=== PATIENT | male | born 1955 | race Caucasian/White ===

== ENCOUNTER 2016-10-05 06:10 | Inpatient (IN) | payer OTHER ==
[~2016-10-05] VITALS: Ht 185.4 cm; Wt 72.7 kg
[~2016-10-05 06:10] MED LIST: ALLO100T30 PO; AMLO5TAB2 PO; ASPI-515 PO; ATOR40TA78 PO; HYDR2TAB29 PO; LISI-170 PO; METO50TA82 PO; MYCO250C PO; MYCO250C4 PO; ONDA4TAB10 PO; OXYC-302 PO; TAMS-11 PO
[2016-10-05] MEDS ORDERED: SODIUM CHLORIDE 0.9% 1,000 ML IV ONE ×2 (06:24→08:36)
[2016-10-05] MEDS ORDERED: SODIUM CHLORIDE 0.9% 1,000ML IVBOLUS ONE (06:30)
[2016-10-05] MEDS ORDERED: ONDANSETRON 2MG/ML, 2ML IVPush ONE (06:30)
[2016-10-05] MEDS ORDERED: SODIUM CHLORIDE FLUSH 10ML SYR IVF ONE (06:30)
[2016-10-05] MEDS ORDERED: LORazepam 2 MG/ML, 1ML IVPush ONE (06:30)
[2016-10-05] MEDS ORDERED: HYDROmorphone 1 MG/ML, 1ML IVPush PRN (06:30)
[2016-10-05] MEDS ORDERED: ONDANSETRON 2MG/ML, 2ML ONE (06:36)
[2016-10-05] MEDS ORDERED: HYDROmorphone 1 MG/ML, 1ML ONE (06:36)
[2016-10-05] MEDS ORDERED: LORazepam 2 MG/ML, 1ML ONE (06:38)
[2016-10-05] MEDS ORDERED: METO-99 PO (06:50)
[2016-10-05] MEDS ORDERED: ASPI-496 PO (06:50)
[2016-10-05] MEDS ORDERED: LISI-167 PO (06:50)
[2016-10-05 07:01] LABS: ASPARTATE AMINO TRANSFERASE 16 U/L (15-37); BLOOD UREA NITROGEN 29 mg/dL (7-18)
[2016-10-05] MEDS ORDERED: SODIUM CHLORIDE FLUSH 10ML SYR IVF PRN (09:00)
[2016-10-05] MEDS ORDERED: ONDANSETRON 2MG/ML, 2ML IVPush PRN (09:30)
[2016-10-05] MEDS ORDERED: POLYETHYLENE GLYCOL 17 GM PACKET PO PRN (09:30)
[2016-10-05] MEDS ORDERED: OXYcodone IR 5MG TABLET PO PRN (09:30)
[2016-10-05] MEDS ORDERED: BISACODYL 10 MG SUPP PR PRN (09:30)
[2016-10-05] MEDS ORDERED: TEMAZEPAM 15 MG CAPSULE PO PRN (09:30)
[2016-10-05] MEDS ORDERED: ACETAMINOPHEN 325 MG TABLET PO PRN (09:30)
[2016-10-05] MEDS ORDERED: DOCUSATE 100 MG CAPSULE PO PRN (09:30)
[2016-10-05 10:25] VITALS: BP 139/88
[2016-10-05] MEDS: NICOTINE 21 MG/24 HR PATCH.TD24 TD SCH (11:05)
[2016-10-05] MEDS: SODIUM CHLORIDE 0.9% 1,000 ML IV SCH ×2 (11:06→23:29)
[2016-10-05] MEDS: HYDROmorphone 2 MG/ML, 1ML IVPush PRN ×5 (11:06→23:28)
[2016-10-05] MEDS: ALLOPURINOL 100 MG TABLET PO SCH (11:46)
[2016-10-05] MEDS: AMLODIPINE 5 MG TABLET PO SCH ×2 (11:46→20:07)
[2016-10-05] MEDS: HEPARIN 5,000 UNITS/ML, 1ML SQ SCH ×2 (11:47→20:09)
[2016-10-05 12:30] LABS: PATH.CAST-FLAG NOT PRESENT; SPERM-FLAG NOT PRESENT; SRC-FLAG NOT PRESENT; XTAL-FLAG NOT PRESENT; YLC-FLAG NOT PRESENT
[2016-10-05 17:11] VITALS: BP 125/82
[2016-10-05 20:03] VITALS: BP 142/81
[2016-10-06] MEDS: HEPARIN 5,000 UNITS/ML, 1ML SQ SCH ×2 (03:46→12:28)
[2016-10-06] MEDS: HYDROmorphone 2 MG/ML, 1ML IVPush PRN ×2 (03:47→07:59)
[2016-10-06 03:53] VITALS: BP 161/90
[2016-10-06 05:32] LABS: BLOOD UREA NITROGEN 20 mg/dL (7-18)
[2016-10-06 08:02] VITALS: BP 151/90
[2016-10-06] MEDS: ALLOPURINOL 100 MG TABLET PO SCH (08:38)
[2016-10-06] MEDS: AMLODIPINE 5 MG TABLET PO SCH (08:38)
[2016-10-06] MEDS: NICOTINE 21 MG/24 HR PATCH.TD24 TD SCH (08:39)
[2016-10-06] MEDS ORDERED: ATORVASTATIN 40 MG TABLET PO SCH (09:00)
[2016-10-06] MEDS ORDERED: LISINOPRIL 10 MG TABLET PO SCH (09:00)
[2016-10-06] MEDS ORDERED: METOPROLOL TARTRATE 50 MG TABLET PO SCH (09:00)
[2016-10-06] MEDS ORDERED: ASPIRIN 81 MG TABLET EC PO SCH (09:00)
[2016-10-06] MEDS: SODIUM CHLORIDE 0.9% 1,000 ML IV SCH (12:28)
[2016-10-06 12:58] VITALS: BP 123/57
== END 2016-10-06 14:24 | disposition home or self-care (01) | DRG 392 ==
LOC: ED 06:30 → EDIP 08:36 → 4NOR 10:23 → DCLOUNGE 10-06 13:19
DX: A08.4 Viral intestinal infection, unspecified (principal); F10.239 Alcohol dependence with withdrawal, unspecified; J98.11 Atelectasis; D53.9 Nutritional anemia, unspecified; N18.3 Chronic kidney disease, stage 3 (moderate); E78.00 Pure hypercholesterolemia, unspecified; E78.5 Hyperlipidemia, unspecified; I12.9 Hypertensive chronic kidney disease with stage 1 through stage 4 chronic kidney disease, or unspecified chronic kidney disease; I71.4 Abdominal aortic aneurysm, without rupture; I73.9 Peripheral vascular disease, unspecified; K57.30 Diverticulosis of large intestine without perforation or abscess without bleeding; M51.37 Other intervertebral disc degeneration, lumbosacral region; N28.1 Cyst of kidney, acquired; N40.0 Benign prostatic hyperplasia without lower urinary tract symptoms; M10.9 Gout, unspecified; F12.90 Cannabis use, unspecified, uncomplicated; Z88.5 Allergy status to narcotic agent; Z95.828 Presence of other vascular implants and grafts; Z87.11 Personal history of peptic ulcer disease
CPT/HCPCS: 36415; 71010; 74000; 74176; 80048; 80053; 81001; 82140; 82607; 82746; 83605; 83690; 83735; 84100; 84443; 85025; 85610; 85730; 86677; 93005; 96361; 96374; 96375; J1170; J1644; J2405; J7517; J2060; J7030

== ENCOUNTER → 2016-12-23 | Outpatient (CLI) | payer OTHER ==
[~2016-12-23] MED LIST changes: +ASPI-496 PO; +LISI-167 PO; +METO-99 PO
== END | disposition home or self-care (01) ==
LOC: CFH 07:32
PROVIDERS: ATTEND Nurse Practitioner Family
DX: I71.4 Abdominal aortic aneurysm, without rupture (principal); I77.1 Stricture of artery; I70.0 Atherosclerosis of aorta
CPT/HCPCS: 93978

== ENCOUNTER → 2017-02-24 | Outpatient (CLI) | payer OTHER ==
[2017-02-24 09:36] LABS: HEMATOCRIT 42.6 % (39.2-51.8); HEMOGLOBIN 14.3 g/dL (13.7-18.0); WHITE BLOOD COUNT 10.5 x10^3/uL (3.4-10)
[2017-02-24 09:51] LABS: BLOOD UREA NITROGEN 37 mg/dL (7-18)
[2017-02-24 09:54] LABS: ASPARTATE AMINO TRANSFERASE 13 U/L (15-37)
== END | disposition home or self-care (01) ==
LOC: STAR 08:33
PROVIDERS: ATTEND Surgery
DX: Z01.818 Encounter for other preprocedural examination (principal); R94.31 Abnormal electrocardiogram [ECG] [EKG]; I71.4 Abdominal aortic aneurysm, without rupture; I70.1 Atherosclerosis of renal artery; I70.209 Unspecified atherosclerosis of native arteries of extremities, unspecified extremity; I12.9 Hypertensive chronic kidney disease with stage 1 through stage 4 chronic kidney disease, or unspecified chronic kidney disease; N18.9 Chronic kidney disease, unspecified; E78.00 Pure hypercholesterolemia, unspecified; Z72.0 Tobacco use
CPT/HCPCS: 36415; 80053; 85025; 93005

== ENCOUNTER 2017-02-28 08:38 | Inpatient (IN) | payer OTHER ==
[~2017-02-28] VITALS: Ht 185.4 cm; Wt 79.6 kg
[2017-02-28] MEDS ORDERED: CEFAZOLIN 1,000 MG ONE ×5 (11:26→17:53)
[2017-02-28] MEDS ORDERED: MIDAZOLAM 1 MG/ML, 2ML ONE ×2 (11:26→13:45)
[2017-02-28] MEDS ORDERED: EPINEPHRINE 1 MG/ML, 1ML ONE (11:26)
[2017-02-28] MEDS ORDERED: NEOSTIGMINE 1 MG/ML, 10ML ONE ×2 (11:26→16:16)
[2017-02-28] MEDS ORDERED: PROPOFOL 10 MG/ML, 20ML ONE ×2 (11:26→13:46)
[2017-02-28] MEDS ORDERED: ROCURONIUM 10 MG/ML,10ML ONE ×2 (11:26→13:47)
[2017-02-28] MEDS ORDERED: CALCIUM CHLORIDE 13.6 MEQ/10 ML ONE (11:26)
[2017-02-28] MEDS ORDERED: FENTANYL PF 250 MCG/5ML ONE (11:26)
[2017-02-28] MEDS ORDERED: GLYCOPYRROLATE 0.2MG/1ML, 5ML ONE ×2 (11:26→16:16)
[2017-02-28] MEDS ORDERED: PHENYLEPHRINE 10 MG/ML ONE (11:26)
[2017-02-28] MEDS ORDERED: ASPI-496 PO (12:31)
[2017-02-28] MEDS ORDERED: LACTATED RINGERS 1,000 ML IV SCH (13:00)
[2017-02-28] MEDS ORDERED: FENTANYL PF 100 MCG/2ML ONE ×5 (13:45→17:40)
[2017-02-28] MEDS ORDERED: SODIUM CHLORIDE 0.9% PF 10ML ONE ×2 (13:48→17:52)
[2017-02-28] MEDS ORDERED: THROMBIN 20,000 UNIT VIAL TP ONE ×2 (14:49→16:00)
[2017-02-28] MEDS ORDERED: PROTAMINE SULFATE 10 MG/ML, 5ML ONE (14:49)
[2017-02-28] MEDS ORDERED: HEPARIN 1,000 UNITS/ML, 10ML ONE (14:49)
[2017-02-28] MEDS ORDERED: HEPARIN 1,000 UNITS/ML, 30ML ONE ×2 (14:53→18:58)
[2017-02-28] MEDS ORDERED: ONDANSETRON 2MG/ML, 2ML IVPush PRN (15:00)
[2017-02-28] MEDS ORDERED: OXYcodone 5 MG/5 ML ORAL.SOL UDC PO PRN (15:00)
[2017-02-28] MEDS ORDERED: LABETALOL 5MG/ML, 20ML IV PRN (15:00)
[2017-02-28] MEDS ORDERED: MEPERIDINE/PF 25MG/0.5ML IVPush PRN (15:00)
[2017-02-28] MEDS ORDERED: FENTANYL PF 100 MCG/2ML IV PRN (15:00)
[2017-02-28] MEDS ORDERED: PROMETHAZINE 25 MG/ML, 1ML IV PRN (15:00)
[2017-02-28] MEDS ORDERED: hydrALAzine 20 MG/ML, 1ML IV PRN (15:00)
[2017-02-28] MEDS ORDERED: ACETAMINOPHEN 325 MG TABLET PO PRN (15:00)
[2017-02-28] MEDS ORDERED: EPHEDRINE 50 MG/ML, 1ML IVPush PRN (15:00)
[2017-02-28] MEDS ORDERED: HEPARIN 1,000 UNITS/ML, 30ML IVPB ONE (16:00)
[2017-02-28] MEDS ORDERED: HEPARIN 1,000 UNITS/ML, 10ML IV ONE (16:00)
[2017-02-28] MEDS ORDERED: CALCIUM CHLORIDE 10%, 10ML SYR ONE (19:05)
[2017-02-28] MEDS ORDERED: HYDROmorphone 2 MG/ML, 1ML ONE (20:15)
[2017-02-28] MEDS: HYDROmorphone 1 MG/ML, 1ML IV PRN ×4 (20:15→23:26)
[2017-02-28 20:50] LABS: HEMATOCRIT 36.5 % (39.2-51.8); WHITE BLOOD COUNT 18.9 x10^3/uL (3.4-10)
[2017-02-28 21:01] LABS: BLOOD UREA NITROGEN 35 mg/dL (7-18)
[2017-02-28] MEDS ORDERED: SODIUM CHLORIDE 0.9% 500 ML IV ONE (22:00)
[2017-02-28] MEDS ORDERED: LABETALOL 5MG/ML, 20ML IVPush PRN (22:30)
[2017-02-28] MEDS ORDERED: ONDANSETRON 2MG/ML, 2ML IV PRN (22:30)
[2017-02-28] MEDS: D5%-LACTATED RINGERS 1,000 ML IV SCH (22:34)
[2017-02-28 23:13] LABS: ABG COLLECTION SITE ARTERIAL LINE
[2017-03-01] MEDS ORDERED: SODIUM BICARBONATE IV ONE
[2017-03-01] MEDS ORDERED: DEXTROSE 5% IV ONE
[2017-03-01] MEDS: SODIUM BICARBONATE 8.4% 100 MEQ in DEXTROSE 5% 1,000 ML IV SCH ×2 (00:07→11:10)
[2017-03-01] MEDS ORDERED: ENOXAPARIN 40 MG/0.4 ML SQ SCH (00:30)
[2017-03-01 01:28] LABS: BLOOD UREA NITROGEN 37 mg/dL (7-18)
[2017-03-01] MEDS: CEFAZOLIN PMX 1GM/50ML 50 ML IVPB SCH ×2 (02:15→09:39)
[2017-03-01] MEDS: HYDROmorphone 1 MG/ML, 1ML IV PRN ×4 (02:21→09:38)
[2017-03-01 04:00] VITALS: BP 99/52
[2017-03-01 04:28] LABS: ABG COLLECTION SITE ARTERIAL LINE
[2017-03-01 04:33] LABS: HEMATOCRIT 32.7 % (39.2-51.8); HEMOGLOBIN 10.9 g/dL (13.7-18.0); WHITE BLOOD COUNT 9.3 x10^3/uL (3.4-10)
[2017-03-01 04:36] LABS: BLOOD UREA NITROGEN 37 mg/dL (7-18)
[2017-03-01] MEDS ORDERED: SODIUM CHLORIDE 0.9% 1,000ML IVBOLUS ONE (07:30)
[2017-03-01] MEDS: AMLODIPINE 5 MG TABLET PO SCH ×2 (07:43→20:31)
[2017-03-01] MEDS: METOPROLOL TARTRATE 50 MG TABLET PO SCH (07:43)
[2017-03-01] MEDS: ALLOPURINOL 100 MG TABLET PO SCH (07:43)
[2017-03-01] MEDS: ATORVASTATIN 40 MG TABLET PO SCH (07:43)
[2017-03-01] MEDS ORDERED: LISINOPRIL 10 MG TABLET PO SCH (09:00)
[2017-03-01] MEDS: D5%-LACTATED RINGERS 1,000 ML IV SCH (09:31)
[2017-03-01] MEDS: SODIUM CHLORIDE FLUSH 10ML SYR IVF SCH ×2 (09:39→21:16)
[2017-03-01 10:59] LABS: POTASSIUM,URINE RANDOM 54 mmol/L
[2017-03-01] MEDS: FENTANYL PF 100 MCG/2ML IVPush PRN ×11 (12:33→23:37)
[2017-03-01 12:54] LABS: ABG COLLECTION SITE ARTERIAL LINE
[2017-03-01 18:28] LABS: PTH INTACT INTERPRETATION ** Comment **
[2017-03-01 19:05] LABS: PARATHYROID HORMONE INTACT 122.4 pg/mL (14-72)
[2017-03-01] MEDS ORDERED: FOLIC ACID 1 MG in DEXTROSE 5% 50 ML IV ONE (19:30)
[2017-03-01 20:20] LABS: FERRITIN 156.5 ng/mL (26-388)
[2017-03-01] MEDS: THIAMINE 100 MG in SODIUM CHLORIDE 0.9% 50 ML IV SCH (20:45)
[2017-03-02] MEDS ORDERED: HYDROcodone/APAP 10/325 MG TABLET ONE (00:58)
[2017-03-02] MEDS: HYDROcodone/APAP 10/325 MG TABLET PO SCH ×7 (01:00→23:03)
[2017-03-02] MEDS: FENTANYL PF 100 MCG/2ML IVPush PRN ×9 (01:00→20:55)
[2017-03-02] MEDS: SODIUM BICARBONATE 8.4% 100 MEQ in DEXTROSE 5% 1,000 ML IV SCH (01:01)
[2017-03-02] MEDS: ENOXAPARIN 30 MG/0.3 ML SQ SCH ×2 (01:01→20:55)
[2017-03-02 04:00] VITALS: BP 146/58
[2017-03-02 04:33] LABS: ABG COLLECTION SITE ARTERIAL LINE
[2017-03-02 04:37] LABS: HEMATOCRIT 31.7 % (39.2-51.8); HEMOGLOBIN 10.6 g/dL (13.7-18.0); WHITE BLOOD COUNT 11.8 x10^3/uL (3.4-10)
[2017-03-02 04:49] LABS: BLOOD UREA NITROGEN 40 mg/dL (7-18)
[2017-03-02 04:54] LABS: ASPARTATE AMINO TRANSFERASE 31 U/L (15-37)
[2017-03-02] MEDS: METOPROLOL TARTRATE 50 MG TABLET PO SCH (08:44)
[2017-03-02] MEDS: ATORVASTATIN 40 MG TABLET PO SCH (08:44)
[2017-03-02] MEDS: AMLODIPINE 5 MG TABLET PO SCH ×2 (08:45→20:54)
[2017-03-02] MEDS: ALLOPURINOL 100 MG TABLET PO SCH (08:45)
[2017-03-02] MEDS: SODIUM CHLORIDE FLUSH 10ML SYR IVF SCH ×2 (08:49→21:00)
[2017-03-02 17:22] VITALS: BP 151/87
[2017-03-02] MEDS: THIAMINE 100 MG in SODIUM CHLORIDE 0.9% 50 ML IV SCH (20:54)
[2017-03-02 21:00] VITALS: BP 143/73
[2017-03-03 01:45] VITALS: BP 127/81
[2017-03-03] MEDS: HYDROcodone/APAP 10/325 MG TABLET PO SCH ×6 (03:05→23:00)
[2017-03-03 05:59] LABS: BLOOD UREA NITROGEN 40 mg/dL (7-18)
[2017-03-03 06:16] LABS: HEMATOCRIT 30.2 % (39.2-51.8); HEMOGLOBIN 10.2 g/dL (13.7-18.0); WHITE BLOOD COUNT 8.6 x10^3/uL (3.4-10)
[2017-03-03 07:58] VITALS: BP 144/75
[2017-03-03] MEDS: SODIUM CHLORIDE FLUSH 10ML SYR IVF SCH ×2 (09:00→21:00)
[2017-03-03] MEDS: METOPROLOL TARTRATE 50 MG TABLET PO SCH (09:41)
[2017-03-03] MEDS: AMLODIPINE 5 MG TABLET PO SCH ×2 (09:41→22:28)
[2017-03-03] MEDS: ALLOPURINOL 100 MG TABLET PO SCH (09:41)
[2017-03-03] MEDS ORDERED: MAGNESIUM SULFATE PMX 4GM/100M 100 ML IV ONE (10:00)
[2017-03-03] MEDS: MAGNESIUM OXIDE 400 MG TABLET PO SCH ×2 (12:57→21:00)
[2017-03-03 15:53] VITALS: BP 131/75
[2017-03-03] MEDS: IRON SUCROSE COMPLEX 100MG/5ML IV SCH (18:10)
[2017-03-03] MEDS: FENTANYL PF 100 MCG/2ML IVPush PRN ×2 (18:20→22:39)
[2017-03-03 19:37] VITALS: BP 136/76
[2017-03-03] MEDS: ENOXAPARIN 40 MG/0.4 ML SQ SCH (22:28)
[2017-03-03] MEDS: ATORVASTATIN 40 MG TABLET PO SCH (22:28)
[2017-03-03] MEDS: THIAMINE 100 MG in SODIUM CHLORIDE 0.9% 50 ML IV SCH (22:28)
[2017-03-04 00:33] VITALS: BP 143/73
[2017-03-04] MEDS: FENTANYL PF 100 MCG/2ML IVPush PRN ×6 (02:06→22:27)
[2017-03-04] MEDS: HYDROcodone/APAP 10/325 MG TABLET PO SCH ×2 (03:00→07:00)
[2017-03-04 05:41] LABS: HEMATOCRIT 31.9 % (39.2-51.8); HEMOGLOBIN 10.6 g/dL (13.7-18.0); WHITE BLOOD COUNT 7.7 x10^3/uL (3.4-10)
[2017-03-04 05:47] LABS: BLOOD UREA NITROGEN 35 mg/dL (7-18)
[2017-03-04 07:18] VITALS: BP 140/83
[2017-03-04] MEDS: SODIUM CHLORIDE FLUSH 10ML SYR IVF SCH ×2 (09:00→20:04)
[2017-03-04] MEDS ORDERED: BISACODYL 10 MG SUPP PR PRN (09:00)
[2017-03-04] MEDS: METOPROLOL TARTRATE 50 MG TABLET PO SCH (10:56)
[2017-03-04] MEDS: CHOLECALCIFEROL 400 UNITS TABLET PO SCH (10:56)
[2017-03-04] MEDS: ALLOPURINOL 100 MG TABLET PO SCH (10:56)
[2017-03-04] MEDS: AMLODIPINE 5 MG TABLET PO SCH ×2 (10:56→20:05)
[2017-03-04] MEDS: PANTOPRAZOLE 40 MG IV IVPush SCH ×2 (10:57→20:05)
[2017-03-04 13:30] VITALS: BP 130/77
[2017-03-04] MEDS: IRON SUCROSE COMPLEX 100MG/5ML IV SCH (17:40)
[2017-03-04 19:26] VITALS: BP 137/78
[2017-03-04] MEDS: ATORVASTATIN 40 MG TABLET PO SCH (20:05)
[2017-03-04] MEDS: THIAMINE 100 MG in SODIUM CHLORIDE 0.9% 50 ML IV SCH (20:05)
[2017-03-04] MEDS: ENOXAPARIN 40 MG/0.4 ML SQ SCH (20:05)
[2017-03-05] MEDS: FENTANYL PF 100 MCG/2ML IVPush PRN ×6 (01:28→21:51)
[2017-03-05 01:53] VITALS: BP 134/76
[2017-03-05 05:21] LABS: BLOOD UREA NITROGEN 32 mg/dL (7-18)
[2017-03-05 05:24] LABS: HEMATOCRIT 28.7 % (39.2-51.8); HEMOGLOBIN 9.5 g/dL (13.7-18.0)
[2017-03-05 08:06] VITALS: BP 151/79
[2017-03-05] MEDS: SODIUM CHLORIDE FLUSH 10ML SYR IVF SCH ×2 (09:00→21:51)
[2017-03-05] MEDS ORDERED: ARANESP 60 MCG/ML **ESRD SQ SCH (09:00)
[2017-03-05] MEDS: HYDROcodone/APAP 10/325 MG TABLET PO PRN ×2 (12:44→23:26)
[2017-03-05] MEDS: CHOLECALCIFEROL 400 UNITS TABLET PO SCH (12:49)
[2017-03-05] MEDS: AMLODIPINE 5 MG TABLET PO SCH ×2 (12:49→21:51)
[2017-03-05] MEDS: ALLOPURINOL 100 MG TABLET PO SCH (12:49)
[2017-03-05] MEDS: PANTOPRAZOLE 40 MG IV IVPush SCH ×2 (12:49→21:57)
[2017-03-05] MEDS: METOPROLOL TARTRATE 50 MG TABLET PO SCH (12:50)
[2017-03-05 14:06] VITALS: BP 125/74
[2017-03-05] MEDS: IRON SUCROSE COMPLEX 100MG/5ML IV SCH (16:36)
[2017-03-05 18:45] VITALS: BP 167/87
[2017-03-05] MEDS: ATORVASTATIN 40 MG TABLET PO SCH (21:51)
[2017-03-05] MEDS: THIAMINE 100 MG in SODIUM CHLORIDE 0.9% 50 ML IV SCH (21:52)
[2017-03-05] MEDS: ENOXAPARIN 40 MG/0.4 ML SQ SCH (23:26)
[2017-03-06 02:09] VITALS: BP_SYST 145; BP_SYST 152; BP_DIAS 74; BP_DIAS 80
[2017-03-06] MEDS: FENTANYL PF 100 MCG/2ML IVPush PRN ×6 (04:58→21:09)
[2017-03-06 05:42] LABS: BLOOD UREA NITROGEN 28 mg/dL (7-18)
[2017-03-06 05:45] LABS: HEMATOCRIT 29.9 % (39.2-51.8); HEMOGLOBIN 10.2 g/dL (13.7-18.0); WHITE BLOOD COUNT 4.7 x10^3/uL (3.4-10)
[2017-03-06 08:00] VITALS: BP 154/82
[2017-03-06] MEDS: PANTOPRAZOLE 40 MG IV IVPush SCH ×2 (09:30→21:09)
[2017-03-06] MEDS ORDERED: POLYETHYLENE GLYCOL 17 GM PACKET PO ONE (09:30)
[2017-03-06] MEDS: SODIUM CHLORIDE FLUSH 10ML SYR IVF SCH ×2 (09:31→21:09)
[2017-03-06] MEDS: AMLODIPINE 5 MG TABLET PO SCH ×2 (09:33→21:08)
[2017-03-06] MEDS: METOPROLOL TARTRATE 50 MG TABLET PO SCH (09:34)
[2017-03-06] MEDS: ALLOPURINOL 100 MG TABLET PO SCH (09:34)
[2017-03-06] MEDS: CHOLECALCIFEROL 400 UNITS TABLET PO SCH (09:34)
[2017-03-06] MEDS: HEPARIN 5,000 UNITS/ML, 1ML SQ SCH (10:04)
[2017-03-06 14:00] VITALS: BP 129/86
[2017-03-06] MEDS: IRON SUCROSE COMPLEX 100MG/5ML IV SCH (18:18)
[2017-03-06 19:15] VITALS: BP 138/79
[2017-03-06] MEDS: ATORVASTATIN 40 MG TABLET PO SCH (21:08)
[2017-03-06] MEDS: THIAMINE 100 MG in SODIUM CHLORIDE 0.9% 50 ML IV SCH (21:09)
[2017-03-07] MEDS: HEPARIN 5,000 UNITS/ML, 1ML SQ SCH ×4 (00:33→21:10)
[2017-03-07] MEDS: HYDROcodone/APAP 10/325 MG TABLET PO PRN ×4 (00:34→22:36)
[2017-03-07 02:00] VITALS: BP 142/73
[2017-03-07] MEDS: FENTANYL PF 100 MCG/2ML IVPush PRN ×3 (04:40→21:10)
[2017-03-07 05:04] LABS: HEMOGLOBIN 9.3 g/dL (13.7-18.0); WHITE BLOOD COUNT 6.1 x10^3/uL (3.4-10)
[2017-03-07 05:13] LABS: BLOOD UREA NITROGEN 26 mg/dL (7-18)
[2017-03-07 07:41] VITALS: BP 157/82
[2017-03-07] MEDS: ALLOPURINOL 100 MG TABLET PO SCH (08:40)
[2017-03-07] MEDS: AMLODIPINE 5 MG TABLET PO SCH ×2 (08:41→21:10)
[2017-03-07] MEDS: METOPROLOL TARTRATE 50 MG TABLET PO SCH (08:42)
[2017-03-07] MEDS: CHOLECALCIFEROL 400 UNITS TABLET PO SCH (08:42)
[2017-03-07] MEDS: PANTOPRAZOLE 40 MG IV IVPush SCH ×2 (08:42→21:10)
[2017-03-07] MEDS: SODIUM CHLORIDE FLUSH 10ML SYR IVF SCH ×2 (08:42→21:11)
[2017-03-07] MEDS ORDERED: ERGOCALCIFEROL 50,000 UNIT CAPSULE PO SCH (12:00)
[2017-03-07 14:30] VITALS: BP 122/74
[2017-03-07] MEDS: IRON SUCROSE COMPLEX 100MG/5ML IV SCH (16:24)
[2017-03-07 18:50] VITALS: BP 117/66
[2017-03-07] MEDS: ATORVASTATIN 40 MG TABLET PO SCH (21:11)
[2017-03-07] MEDS: THIAMINE 100 MG in SODIUM CHLORIDE 0.9% 50 ML IV SCH (22:37)
[2017-03-08 02:00] VITALS: BP 150/83
[2017-03-08] MEDS: FENTANYL PF 100 MCG/2ML IVPush PRN ×2 (02:02→05:58)
[2017-03-08 05:49] LABS: BLOOD UREA NITROGEN 25 mg/dL (7-18)
[2017-03-08 05:52] LABS: ASPARTATE AMINO TRANSFERASE 43 U/L (15-37)
[2017-03-08 05:55] LABS: HEMATOCRIT 28.8 % (39.2-51.8); HEMOGLOBIN 9.6 g/dL (13.7-18.0); WHITE BLOOD COUNT 5.2 x10^3/uL (3.4-10)
[2017-03-08] MEDS: HEPARIN 5,000 UNITS/ML, 1ML SQ SCH (07:00)
[2017-03-08 07:05] VITALS: BP 154/79
[2017-03-08] MEDS ORDERED: MAGNESIUM OXIDE 400 MG TABLET PO ONE (07:30)
[2017-03-08] MEDS: METOPROLOL TARTRATE 50 MG TABLET PO SCH (08:28)
[2017-03-08] MEDS: AMLODIPINE 5 MG TABLET PO SCH (08:28)
[2017-03-08] MEDS: PANTOPRAZOLE 40 MG IV IVPush SCH (08:28)
[2017-03-08] MEDS: ALLOPURINOL 100 MG TABLET PO SCH (08:28)
[2017-03-08] MEDS: SODIUM CHLORIDE FLUSH 10ML SYR IVF SCH (08:29)
[2017-03-08] MEDS ORDERED: HYDR-3240 PO (09:29)
[2017-03-08] MEDS ORDERED: DOCU-131 PO (09:30)
[2017-03-08] MEDS ORDERED: ONDA4TAB7 PO (09:30)
== END 2017-03-08 09:42 | disposition home health service (06) | DRG 270 ==
LOC: ORIP 11:17 → CCU 21:35 → 5SO 03-02 16:45 → DCLOUNGE 03-08 09:27
PROVIDERS: ADMIT Surgery; ATTEND Surgery
PROC: 04CK0ZZ Extirpation of Matter from Right Femoral Artery, Open Approach (ICD-10-PCS; 2017-02-28)
PROC: 04U00JZ Supplement Abdominal Aorta with Synthetic Substitute, Open Approach (ICD-10-PCS; 2017-02-28)
PROC: 04100J8 Bypass Abdominal Aorta to Bilateral Common Iliac Arteries with Synthetic Substitute, Open Approach (ICD-10-PCS; principal; 2017-02-28 14:30)
PROC: 04CL0ZZ Extirpation of Matter from Left Femoral Artery, Open Approach (ICD-10-PCS; 2017-02-28 14:30)
PROC: 0T9B70Z Drainage of Bladder with Drainage Device, Via Natural or Artificial Opening (ICD-10-PCS; 2017-03-01)
DX: I71.4 Abdominal aortic aneurysm, without rupture (principal); E43 Unspecified severe protein-calorie malnutrition; E87.2 Acidosis; D69.6 Thrombocytopenia, unspecified; E87.8 Other disorders of electrolyte and fluid balance, not elsewhere classified; N17.9 Acute kidney failure, unspecified; N18.3 Chronic kidney disease, stage 3 (moderate); N25.81 Secondary hyperparathyroidism of renal origin; D63.1 Anemia in chronic kidney disease; D72.829 Elevated white blood cell count, unspecified; E55.9 Vitamin D deficiency, unspecified; F17.210 Nicotine dependence, cigarettes, uncomplicated; I12.9 Hypertensive chronic kidney disease with stage 1 through stage 4 chronic kidney disease, or unspecified chronic kidney disease; Z96.643 Presence of artificial hip joint, bilateral; E78.00 Pure hypercholesterolemia, unspecified; I10 Essential (primary) hypertension; I77.1 Stricture of artery; I70.293 Other atherosclerosis of native arteries of extremities, bilateral legs; I70.1 Atherosclerosis of renal artery; F12.10 Cannabis abuse, uncomplicated; Z90.49 Acquired absence of other specified parts of digestive tract; Z82.49 Family history of ischemic heart disease and other diseases of the circulatory system; Z80.9 Family history of malignant neoplasm, unspecified; Z80.49 Family history of malignant neoplasm of other genital organs; Z72.89 Other problems related to lifestyle; Z88.0 Allergy status to penicillin
CPT/HCPCS: 36415; 36600; 71010; 76770; 80048; 80053; 81001; 82306; 82310; 82330; 82436; 82550; 82570; 82728; 82803; 83540; 83550; 83605; 83735; 83970; 84100; 84133; 84156; 84300; 84550; 85025; 85045; 86850; 86900; 87081; 87086; 87205; C1768; J0171; J0690; J0882; J1170; J1644; J1650; J1756; J2250; J2405; J2704; J2710; J2720; J3010; J3411; J3490; J7070; J7517; C1765; C1781; C9113; J2370; J3475; J7030; J7040; J7120; J7121

== ENCOUNTER → 2017-12-27 | Outpatient (CLI) | payer OTHER ==
[~2017-12-27] MED LIST changes: -AMLO5TAB2 PO; +AMLO5TAB7 PO; +DOCU-131 PO; +HYDR-3240 PO; +ONDA4TAB7 PO
== END | disposition home or self-care (01) ==
LOC: CFH 08:03
PROVIDERS: ATTEND Surgery
DX: K55.1 Chronic vascular disorders of intestine (principal); I71.4 Abdominal aortic aneurysm, without rupture; I73.9 Peripheral vascular disease, unspecified
CPT/HCPCS: 93975

== ENCOUNTER 2017-12-30 15:10 | Emergency (ER) | payer OTHER ==
[~2017-12-30] VITALS: Ht 185.4 cm; Wt 70.0 kg
[2017-12-30] MEDS ORDERED: OXYcodone/APAP 10/325MG TABLET PO ONE (15:30)
[2017-12-30] MEDS ORDERED: OXYcodone/APAP 10/325MG TABLET ONE (15:38)
[2017-12-30 16:48] VITALS: BP 136/62
== END 2017-12-30 16:59 | disposition home or self-care (01) ==
LOC: ED 16:57
DX: S16.1XXA Strain of muscle, fascia and tendon at neck level, initial encounter (principal); S29.011A Strain of muscle and tendon of front wall of thorax, initial encounter; R91.1 Solitary pulmonary nodule; I10 Essential (primary) hypertension; E78.00 Pure hypercholesterolemia, unspecified; V49.49XA Driver injured in collision with other motor vehicles in traffic accident, initial encounter; Y93.89 Activity, other specified; Y92.89 Other specified places as the place of occurrence of the external cause; Y99.8 Other external cause status
CPT/HCPCS: 70450; 71250; 72125; 99284

== ENCOUNTER 2018-01-05 06:12 | Observation (INO) | payer OTHER ==
[2018-01-03 16:04] LABS: ALANINE AMINOTRANSFERASE 19 U/L (12-78); ALBUMIN 2.9 g/dL (3.4-5.0); ANION GAP 6 mmol/L (5-15); CALCIUM 8.3 mg/dL (8.5-10.1); CHLORIDE 117 mmol/L (98-107); CREATININE 2.16 mg/dL (0.7-1.3)
[2018-01-03 16:06] LABS: ALKALINE PHOSPHATASE 86 U/L (45-117); BILIRUBIN,TOTAL 0.4 mg/dL (0.2-1.0); TOTAL PROTEIN 6.6 g/dL (6.4-8.2)
[~2018-01-05] VITALS: Ht 185.4 cm; Wt 77.8 kg
[2018-01-05] MEDS ORDERED: LACTATED RINGERS 1,000 ML IV SCH (06:46)
[2018-01-05] MEDS ORDERED: OxyconTIN ER 20 MG TAB.ER PO ONE (07:00)
[2018-01-05] MEDS ORDERED: FAMOTIDINE 20 MG TABLET PO ONE (07:00)
[2018-01-05] MEDS ORDERED: ACETAMINOPHEN 500 MG TABLET PO ONE (07:00)
[2018-01-05] MEDS ORDERED: ONDANSETRON ODT 8 MG PO ONE (07:00)
[2018-01-05] MEDS ORDERED: GABAPENTIN 300 MG CAPSULE PO ONE (07:00)
[2018-01-05] MEDS ORDERED: BUPIVACAINE/PF-EPI 0.5% 1:200K ONE (07:01)
[2018-01-05] MEDS ORDERED: PROPOFOL 10 MG/ML, 20ML ONE (07:13)
[2018-01-05] MEDS ORDERED: MIDAZOLAM 1 MG/ML, 2ML ONE ×2 (07:13)
[2018-01-05] MEDS ORDERED: GLYCOPYRROLATE 0.2MG/1ML, 5ML ONE (07:13)
[2018-01-05] MEDS ORDERED: LIDOCAINE 2% 100MG/5ML SYRINGE ONE (07:13)
[2018-01-05] MEDS ORDERED: DEXAMETHASONE 4 MG/ML, 1ML ONE (07:13)
[2018-01-05] MEDS ORDERED: FENTANYL PF 250 MCG/5ML ONE (07:14)
[2018-01-05] MEDS ORDERED: ROCURONIUM 10MG/ML,5ML ONE (07:35)
[2018-01-05] MEDS ORDERED: LABETALOL 20 MG/4 ML ONE (07:35)
[2018-01-05] MEDS ORDERED: ONDANSETRON ODT 8 MG PO PRN (09:00)
[2018-01-05] MEDS ORDERED: EPHEDRINE 50 MG/ML, 1ML IM PRN (09:00)
[2018-01-05] MEDS ORDERED: MIDAZOLAM 1 MG/ML, 2ML IV PRN (09:00)
[2018-01-05] MEDS ORDERED: KETOROLAC 30 MG/1 ML IV PRN (09:00)
[2018-01-05] MEDS ORDERED: ALBUTEROL/IPRATROPIUM 2.5MG/0.5MG, 3 ML NPPB PRN (09:00)
[2018-01-05] MEDS ORDERED: DEXAMETHASONE 4 MG/ML, 1ML IV PRN (09:00)
[2018-01-05] MEDS ORDERED: FENTANYL PF 100 MCG/2ML IV PRN (09:00)
[2018-01-05] MEDS ORDERED: DIPHENHYDRAMINE 50 MG/ML, 1ML IVPush PRN (09:00)
[2018-01-05] MEDS ORDERED: HYDROmorphone 1 MG/ML, 1ML IV PRN (09:00)
[2018-01-05] MEDS ORDERED: LABETALOL 5MG/ML, 20ML IV PRN (09:00)
[2018-01-05] MEDS ORDERED: MEPERIDINE/PF 25MG/0.5ML IVPush PRN (09:00)
[2018-01-05] MEDS ORDERED: OXYcodone 5 MG/5 ML ORAL.SOL UDC PO PRN (09:00)
[2018-01-05] MEDS ORDERED: METOCLOPRAMIDE 5 MG/ML, 2ML IV PRN (09:00)
[2018-01-05] MEDS ORDERED: HYDROcodone/APAP 5/325 TABLET ONE (15:14)
[2018-01-05] MEDS: HYDROcodone/APAP 5/325 TABLET PO PRN (21:54)
[2018-01-06] MEDS: HYDROcodone/APAP 5/325 TABLET PO PRN ×3 (00:15→09:55)
[2018-01-06 00:22] VITALS: BP 128/70
[2018-01-06 04:34] VITALS: BP 126/71
[2018-01-06 08:12] VITALS: BP 124/76
[2018-01-06] MEDS ORDERED: HYDR-3240 PO (11:33)
[2018-01-06] MEDS ORDERED: DOCU-131 PO (11:33)
[2018-01-06] MEDS ORDERED: ONDA4TAB7 PO (11:33)
[2018-01-06 12:37] VITALS: BP 129/89
== END 2018-01-06 13:00 | disposition home or self-care (01) ==
LOC: OUT 06:12 → 4NOR 18:29 → INTOOBSV 22:34 → 4NOR 22:34 → OUT 22:34 → DCLOUNGE 01-06 13:00
PROVIDERS: ADMIT Surgery; ATTEND Surgery
DX: K43.2 Incisional hernia without obstruction or gangrene (principal); I12.9 Hypertensive chronic kidney disease with stage 1 through stage 4 chronic kidney disease, or unspecified chronic kidney disease; N18.9 Chronic kidney disease, unspecified; E78.5 Hyperlipidemia, unspecified; Z86.79 Personal history of other diseases of the circulatory system; Z87.891 Personal history of nicotine dependence
CPT/HCPCS: 36415; 49654; 80053; 93005; C1781; G0378; J1100; J2250; J2704; J3010; J3490; J7120; Q0162

== ENCOUNTER 2018-01-08 08:37 | Emergency (ER) | payer OTHER ==
[~2018-01-08] VITALS: Ht 185.4 cm; Wt 70.0 kg
[2018-01-08] MEDS ORDERED: LIDOCAINE 2%,20 ML JEL.PF.APP MM ONE ×2 (09:21→09:30)
[2018-01-08 10:12] LABS: BASOPHILS # (AUTO) 0.02 x10^3/uL (0-0.1); BASOPHILS % (AUTO) 0 % (0-1); EOSINOPHILS # (AUTO) 0.13 x10^3/uL (0-0.4); EOSINOPHILS % (AUTO) 2 % (1-7); LYMPHOCYTES # (AUTO) 1.54 x10^3/uL (1-3.4); LYMPHOCYTES % (AUTO) 18 % (22-44); MD NO; MEAN CORPUSCULAR HEMOGLOBIN 34.5 pg (27.5-34.5); MEAN CORPUSCULAR HGB CONC 33.6 g/dL (33.2-36.2); MEAN CORPUSCULAR VOLUME 102.6 fL (81-97); MEAN PLATELET VOLUME 9.7 fL (7.4-10.4); MONOCYTES # (AUTO) 0.87 x10^3/uL (0.2-0.8); MONOCYTES % (AUTO) 10 % (2-9); NEUTROPHILS # (AUTO) 6.24 x10^3/uL (1.8-6.8); NEUTROPHILS % (AUTO) 71 % (42-75); PLATELET COUNT 215 x10^3/uL (130-400); RED BLOOD COUNT 3.49 x10^6/uL (4.38-5.82); RED CELL DISTRIBUTION WIDTH 14.6 % (9.4-14.8)
[2018-01-08 10:23] LABS: ALBUMIN 2.7 g/dL (3.4-5.0); ANION GAP 6 mmol/L (5-15); CALCIUM 8.4 mg/dL (8.5-10.1); CHLORIDE 112 mmol/L (98-107); CREATININE 2.65 mg/dL (0.7-1.3)
[2018-01-08 11:37] LABS: MICROSCOPIC AUTO
[2018-01-08 11:45] LABS: CULTURE INDICATED? YES
[2018-01-08 13:31] VITALS: BP 119/70
== END 2018-01-08 13:34 | disposition home or self-care (01) ==
LOC: ED 09:32
DX: I12.9 Hypertensive chronic kidney disease with stage 1 through stage 4 chronic kidney disease, or unspecified chronic kidney disease (principal); N18.9 Chronic kidney disease, unspecified; R33.9 Retention of urine, unspecified; E78.00 Pure hypercholesterolemia, unspecified
CPT/HCPCS: 36415; 51702; 80048; 81001; 82040; 85025; 87086; 99284

== ENCOUNTER 2018-01-16 15:41 | Emergency (ER) | payer OTHER ==
[~2018-01-16] VITALS: Ht 185.4 cm; Wt 71.5 kg
[2018-01-16 16:25] LABS: BASOPHILS # (AUTO) 0.03 x10^3/uL (0-0.1); BASOPHILS % (AUTO) 0 % (0-1); EOSINOPHILS % (AUTO) 2 % (1-7); LYMPHOCYTES % (AUTO) 18 % (22-44); MD NO; MEAN CORPUSCULAR HEMOGLOBIN 34.4 pg (27.5-34.5); MEAN CORPUSCULAR HGB CONC 33.1 g/dL (33.2-36.2); MEAN CORPUSCULAR VOLUME 103.9 fL (81-97); MEAN PLATELET VOLUME 8.8 fL (7.4-10.4); MONOCYTES % (AUTO) 8 % (2-9); NEUTROPHILS # (AUTO) 7.29 x10^3/uL (1.8-6.8); NEUTROPHILS % (AUTO) 72 % (42-75); PLATELET COUNT 281 x10^3/uL (130-400); RED BLOOD COUNT 3.46 x10^6/uL (4.38-5.82); RED CELL DISTRIBUTION WIDTH 14.7 % (9.4-14.8)
[2018-01-16 16:37] LABS: ALANINE AMINOTRANSFERASE 16 U/L (12-78); ANION GAP 9 mmol/L (5-15); CALCIUM 8.4 mg/dL (8.5-10.1); CHLORIDE 113 mmol/L (98-107)
[2018-01-16 16:41] LABS: ALKALINE PHOSPHATASE 119 U/L (45-117); BILIRUBIN,TOTAL 0.3 mg/dL (0.2-1.0); CREATININE 2.62 mg/dL (0.7-1.3); TOTAL PROTEIN 6.7 g/dL (6.4-8.2)
[2018-01-16 18:11] LABS: CULTURE INDICATED? YES; MICROSCOPIC INDICATED
[2018-01-16 18:33] VITALS: BP 141/83
== END 2018-01-16 18:58 | disposition home or self-care (01) ==
LOC: ED 17:38
DX: R31.29 Other microscopic hematuria (principal); S23.41XA Sprain of ribs, initial encounter; X58.XXXA Exposure to other specified factors, initial encounter; Y93.89 Activity, other specified; Y99.8 Other external cause status; Y92.89 Other specified places as the place of occurrence of the external cause
CPT/HCPCS: 36415; 74021; 80053; 81001; 85025; 87086; 99285

== ENCOUNTER → 2018-02-22 | Outpatient (CLI) | payer OTHER ==
[~2018-02-22] MED LIST changes: +AMLO-150 PO; -AMLO5TAB7 PO
== END | disposition home or self-care (01) ==
LOC: CFH 08:30
PROVIDERS: ATTEND Nurse Practitioner Gerontology
DX: I71.9 Aortic aneurysm of unspecified site, without rupture (principal); R31.9 Hematuria, unspecified
CPT/HCPCS: 74176

== ENCOUNTER 2018-06-15 05:34 | Day surgery (SDC) | payer MEDICARE, OTHER ==
[2018-06-14 12:03] LABS: ALANINE AMINOTRANSFERASE 21 U/L (12-78); ALBUMIN 3.1 g/dL (3.4-5.0); ANION GAP 5 mmol/L (5-15); CALCIUM 8.3 mg/dL (8.5-10.1); CHLORIDE 115 mmol/L (98-107)
[2018-06-14 12:05] LABS: ALKALINE PHOSPHATASE 103 U/L (45-117); BILIRUBIN,TOTAL 0.3 mg/dL (0.2-1.0); CREATININE 2.62 mg/dL (0.7-1.3); TOTAL PROTEIN 6.3 g/dL (6.4-8.2)
[~2018-06-15] VITALS: Ht 185.4 cm; Wt 72.0 kg
[~2018-06-15 05:34] MED LIST changes: +LISI2.5T PO; +METO-95 PO
[2018-06-15 06:07] VITALS: BP 139/88
[2018-06-15] MEDS ORDERED: LACTATED RINGERS 1,000 ML IV SCH (06:07)
[2018-06-15] MEDS ORDERED: BUPIVACAINE/PF-EPI 0.5% 1:200K ONE (06:17)
[2018-06-15] MEDS ORDERED: FENTANYL PF 250 MCG/5ML ONE (06:22)
[2018-06-15] MEDS ORDERED: MIDAZOLAM 1 MG/ML, 2ML ONE (06:22)
[2018-06-15] MEDS ORDERED: ACETAMINOPHEN 500 MG TABLET ONE (06:39)
[2018-06-15] MEDS ORDERED: GABAPENTIN 300 MG CAPSULE ONE (06:39)
[2018-06-15] MEDS ORDERED: ACETAMINOPHEN 500 MG TABLET PO ONE ×2 (07:00→07:30)
[2018-06-15] MEDS ORDERED: GABAPENTIN 300 MG CAPSULE PO ONE ×2 (07:00→07:30)
[2018-06-15] MEDS ORDERED: SODIUM CHLORIDE 0.9% 1,000 ML IV SCH (07:08)
[2018-06-15] MEDS ORDERED: BUPIVACAINE/PF-EPI 0.5% 1:200K INFIL ONE (07:25)
[2018-06-15] MEDS ORDERED: PROMETHAZINE 25 MG/ML, 1ML IV PRN (08:00)
[2018-06-15] MEDS ORDERED: OXYcodone 5 MG/5 ML ORAL.SOL UDC PO PRN (08:00)
[2018-06-15] MEDS ORDERED: KETOROLAC 30 MG/1 ML IV PRN (08:00)
[2018-06-15] MEDS ORDERED: MEPERIDINE/PF 25MG/0.5ML IVPush PRN (08:00)
[2018-06-15] MEDS ORDERED: ONDANSETRON 2MG/ML, 2ML IVPush PRN (08:00)
[2018-06-15] MEDS ORDERED: ALBUTEROL SULFATE 2.5 MG/3 ML NPPB PRN (08:00)
[2018-06-15] MEDS ORDERED: FENTANYL PF 100 MCG/2ML IV PRN (08:00)
[2018-06-15] MEDS ORDERED: HYDROmorphone 1 MG/ML, 1ML AMP IV PRN (08:00)
[2018-06-15] MEDS ORDERED: hydrALAzine 20 MG/ML, 1ML IV PRN (08:00)
[2018-06-15] MEDS ORDERED: LABETALOL 5MG/ML, 20ML IV PRN (08:00)
[2018-06-15] MEDS ORDERED: FENTANYL PF 100 MCG/2ML ONE (08:17)
[2018-06-15] MEDS ORDERED: HYDROmorphone 1 MG/ML, 1ML AMP ONE (08:17)
[2018-06-15] MEDS ORDERED: OXYcodone 5 MG/5 ML ORAL.SOL UDC ONE (08:17)
[2018-06-15] MEDS ORDERED: MEPERIDINE/PF 25MG/ML,1ML ONE (08:29)
[2018-06-15] MEDS ORDERED: HYDROcodone/APAP 5/325 TABLET ONE (12:56)
[2018-06-15] MEDS: HYDROcodone/APAP 5/325 TABLET PO PRN ×2 (13:04→17:04)
[2018-06-15] MEDS ORDERED: NEOSTIGMINE 1 MG/ML, 10ML ONE (15:09)
[2018-06-15] MEDS ORDERED: PROPOFOL 10 MG/ML, 20ML ONE (15:09)
[2018-06-15] MEDS ORDERED: ROCURONIUM 10MG/ML,5ML ONE (15:09)
[2018-06-15] MEDS ORDERED: CEFAZOLIN 1,000 MG ONE (15:09)
[2018-06-15] MEDS ORDERED: ONDANSETRON 2MG/ML, 2ML ONE (15:09)
[2018-06-15] MEDS ORDERED: KETOROLAC 30 MG/1 ML ONE (15:09)
[2018-06-15] MEDS ORDERED: GLYCOPYRROLATE 0.2MG/1ML, 5ML ONE (15:09)
[2018-06-15] MEDS ORDERED: DEXAMETHASONE 4 MG/ML, 1ML ONE (15:09)
[2018-06-15] MEDS ORDERED: SUCCINYLCHOLINE 20 MG/ML, 10ML ONE (15:09)
== END 2018-06-15 17:10 | disposition home or self-care (01) ==
LOC: OUT 05:34
PROVIDERS: ATTEND Surgery
DX: K43.9 Ventral hernia without obstruction or gangrene (principal); I12.9 Hypertensive chronic kidney disease with stage 1 through stage 4 chronic kidney disease, or unspecified chronic kidney disease; N18.9 Chronic kidney disease, unspecified; N40.0 Benign prostatic hyperplasia without lower urinary tract symptoms; M10.9 Gout, unspecified; F17.210 Nicotine dependence, cigarettes, uncomplicated; Z96.649 Presence of unspecified artificial hip joint; Z98.890 Other specified postprocedural states; Z98.52 Vasectomy status; Z72.89 Other problems related to lifestyle
CPT/HCPCS: 36415; 49652; 80053; 93005; C1781; J0330; J0690; J1100; J1885; J2175; J2250; J2405; J2704; J2710; J3010; J3490; J7030; J7120